=== PATIENT | male | born 1985 ===

== ENCOUNTER 2021-11-26 11:07 | Outpatient (CLI) | payer OTHER ==
--- NOTE | 2021-11-26 12:50 | XRay Report ---
CHEST 2 VIEWS INDICATION / CLINICAL INFORMATION: TO RULE OUT ACTIVE TB. COMPARISON: None available. FINDINGS: SUPPORT DEVICES: None. HEART / MEDIASTINUM: No significant abnormality. LUNGS / PLEURA: No significant pulmonary or pleural abnormality. No pneumothorax. ADDITIONAL FINDINGS: No significant additional findings. IMPRESSION: 1. No acute findings. No evidence for pulmonary tuberculosis. Signer Name: Moises Morton Jr, MD Signed: 11/26/2021 12:45 PM Workstation Name: [id number]
== END 2021-11-26 11:08 | disposition home or self-care (01) ==
LOC: XRAY 11:07
PROVIDERS: ATTEND Psychiatry & Neurology Psychiatry
DX: I10 Essential (primary) hypertension (principal); E78.5 Hyperlipidemia, unspecified; M54.50 Low back pain, unspecified; Z79.899 Other long term (current) drug therapy
CPT/HCPCS: 71046